=== PATIENT | male | born 1950 | race Caucasian/White ===

== ENCOUNTER 2016-12-12 19:27 | Inpatient (IN) | payer OTHER ==
[~2016-12-12] VITALS: Ht 172.7 cm; Wt 66.4 kg
[2016-12-12 19:27] VITALS: BP 146/80
[~2016-12-12 19:27] MED LIST: AMIODARONE HYD200 MG PO; ASPIR-TRIN325 MG PO; ASPIRIN CHEWABL81 MG PO; CIPRO500 MG PO; CLOPIDOGREL75 MG PO; COMBIVENT1 ARO IH; CRESTOR40 MG PO; DAYPRO600 M1 PO; DOXYCYCLINE100 M3 PO; FLAGYL500 MG PO; LISINOPRIL20 MG PO; LISINOPRIL5 MG PO; LOMOTIL 0.025 M1 TA1 PO; LOPRESSOR25 MG PO; MEDROL DOSEPAK4 MG PO; METOPROLOL SR50 MG PO; METOPROLOL SUCC50 M1 PO; NATURE'S BLEND F1 MG PO; OMEPRAZOLE20 MG PO; OXYCODONE HCL5 M1 PO; TRAMADOL HCL50 MG PO; VITAMIN B COMPL1 CAP PO; VITAMIN D1000 IU PO; ZITHROMAX Z PA250 MG PO; ZOFRAN ODT4 MG SL
[2016-12-12 20:09] LABS: BASO % 0.2 % (0.0-1.0); EOS # 0.1 10*3/uL (0.0-0.4); EOS % 0.9 % (1.0-4.0); HEMATOCRIT 38.4 % (42.0-52.0); LYMPH # 0.9 10*3/uL (1.3-4.4); LYMPH % 10.6 % (27.0-41.0); MEAN CELL VOLUME 91.2 fl (80.0-94.0); MEAN CORPUSCULAR HGB 30.9 pg (27.0-31.0); MEAN CORPUSCULAR HGB CONC 33.9 g/dl (33.0-37.0); MEAN PLATELET VOLUME 11.7 fl (9.6-12.3); MONO # 0.6 10*3/uL (0.1-1.0); MONO % 7.6 % (3.0-9.0); NEUT # 6.5 10*3/uL (2.3-7.9); NEUT % 80.5 % (47.0-73.0); PLATELET COUNT AUTOMATED 174 10*3/uL (130-400); RED BLOOD COUNT 4.21 10*6/uL (4.50-5.90); WHITE BLOOD COUNT 8.1 10*3/uL (4.8-10.8)
[2016-12-12 20:22] LABS: INTERNATIONAL NORM RATIO 1.1 (2.0-3.5); PROTHROMBIN TIME 12.2 SECONDS (9.0-12.4)
[2016-12-12 20:25] LABS: ALBUMIN 3.4 gm/dl (3.1-4.5); BILIRUBIN, TOTAL 0.4 mg/dl (0.2-1.0); MAGNESIUM 1.2 mg/dL (1.5-2.1); POTASSIUM 4.6 mmol/L (3.5-5.1); TOTAL PROTEIN 8.3 gm/dL (6.4-8.2)
[2016-12-12 20:33] LABS: TROPONIN I 0.059 ng/ml (<0.045)
[2016-12-12 22:30] VITALS: BP 138/74
[2016-12-12] MEDS ORDERED: B-1100 M1 PO (22:52)
[2016-12-13 00:02] VITALS: BP 140/89
[2016-12-13 00:45] LABS: TROPONIN I 0.437 ng/ml (<0.045)
[2016-12-13 06:09] LABS: HEMATOCRIT 37.1 % (42.0-52.0); HEMOGLOBIN 12.6 g/dl (14.0-18.0); MEAN CELL VOLUME 90.7 fl (80.0-94.0); MEAN CORPUSCULAR HGB 30.8 pg (27.0-31.0); MEAN PLATELET VOLUME 12.1 fl (9.6-12.3); PLATELET COUNT AUTOMATED 164 10*3/uL (130-400); RED BLOOD COUNT 4.09 10*6/uL (4.50-5.90); RED CELL DISTRI WIDTH 13.8 % (0-14.5); WHITE BLOOD COUNT 7.4 10*3/uL (4.8-10.8)
[2016-12-13 06:24] LABS: CKMB 11.4 ng/ml (0.5-3.6); TROPONIN I 0.305 ng/ml (<0.045)
[2016-12-13 06:38] LABS: BUN 29 mg/dl (7-24); CARBON DIOXIDE 23 mmol/L (21-32); CHLORIDE 105 mmol/L (98-107); CHOLESTEROL 145 mg/dL (<200); EST GLOM FILT AFRICAN AMERICAN > 60 ml/min; FREE T4 1.12 ng/dl (0.76-1.46); GLUCOSE 172 mg/dL (65-99); INTERNATIONAL NORM RATIO 1.1 (2.0-3.5); POTASSIUM 3.9 mmol/L (3.5-5.1); SODIUM 135 mmol/L (136-145); TRIGLYCERIDES 51 mg/dl (<150); VLDL CHOLESTEROL 10 mg/dL (6-40)
[2016-12-13 06:46] LABS: HDL CHOLESTEROL 50 mg/dl (40-60); LDL CHOLESTEROL 85 mg/dL (9-159)
[2016-12-13 07:32] LABS: LYMPHOCYTE # 0.2 10*3/uL (1.3-4.4); MONOCYTE # 0.1 10*3/uL (0.1-1.0); NEUTROPHILS 95 % (47-73); PLATELET SUFFICIENCY NORMAL (NORMAL); TOTAL CELLS COUNTED 100 #CELLS
[2016-12-13 07:44] LABS: FOLIC ACID > 24.00 ng/mL (>5.38)
[2016-12-13 08:00] VITALS: BP 130/64
[2016-12-13 09:29] VITALS: BP 170/79
[2016-12-13 10:05] VITALS: BP 149/116
[2016-12-13 10:09] LABS: POTASSIUM 3.7 mmol/L (3.5-5.1)
[2016-12-13 10:16] LABS: CKMB 10.9 ng/ml (0.5-3.6); MAGNESIUM 0.8 mg/dL (1.5-2.1); TROPONIN I 0.202 ng/ml (<0.045)
[2016-12-13] MEDS ORDERED: DUONEB 3 MG/3 ML3 M1 NEB (11:19)
[2016-12-13] MEDS ORDERED: HEPARIN-NS25000 UNIT IV (11:19)
[2016-12-13] MEDS ORDERED: TOPROL XL50 M1 PO (11:19)
[2016-12-13] MEDS ORDERED: MAGNESIUM IV (11:20)
== END 2016-12-13 11:46 | disposition short-term general hospital (02) | DRG 280 ==
LOC: ED 19:27 → EDHOLD 21:13 → 4E 21:13 → ICCU 12-13 10:11
PROVIDERS: Emergency Medicine Emergency Medical Services; Family Medicine; Internal Medicine
DX: I21.4 Non-ST elevation (NSTEMI) myocardial infarction (principal); J96.00 Acute respiratory failure, unspecified whether with hypoxia or hypercapnia; E44.0 Moderate protein-calorie malnutrition; J44.9 Chronic obstructive pulmonary disease, unspecified; I12.9 Hypertensive chronic kidney disease with stage 1 through stage 4 chronic kidney disease, or unspecified chronic kidney disease; N18.3 Chronic kidney disease, stage 3 (moderate); I25.10 Atherosclerotic heart disease of native coronary artery without angina pectoris; K21.9 Gastro-esophageal reflux disease without esophagitis; E78.00 Pure hypercholesterolemia, unspecified; G89.29 Other chronic pain; R74.0 Nonspecific elevation of levels of transaminase and lactic acid dehydrogenase [LDH]; D72.810 Lymphocytopenia; R73.9 Hyperglycemia, unspecified; E83.42 Hypomagnesemia; I73.9 Peripheral vascular disease, unspecified; M54.9 Dorsalgia, unspecified; Z86.73 Personal history of transient ischemic attack (TIA), and cerebral infarction without residual deficits; Z87.891 Personal history of nicotine dependence; I25.2 Old myocardial infarction; Z95.828 Presence of other vascular implants and grafts; Z95.1 Presence of aortocoronary bypass graft; Z95.818 Presence of other cardiac implants and grafts; Z90.49 Acquired absence of other specified parts of digestive tract; Z98.42 Cataract extraction status, left eye; Z82.49 Family history of ischemic heart disease and other diseases of the circulatory system; Z82.0 Family history of epilepsy and other diseases of the nervous system; Z79.82 Long term (current) use of aspirin; Z80.9 Family history of malignant neoplasm, unspecified; Z79.899 Other long term (current) drug therapy; Z68.22 Body mass index [BMI] 22.0-22.9, adult

== ENCOUNTER 2016-12-22 23:52 | Emergency (ER) | payer OTHER ==
[~2016-12-22] VITALS: Ht 172.7 cm; Wt 66.7 kg
--- NOTE | ~2016-12-22 | EKG ---
[place], [place] ELECTROCARDIOGRAM REPORT NAME: DOMINGA JUAREZ UNIT #: [id number] ROOM: DOCTOR: BONNY GUTIERREZ MD BIRTHDATE: [birth year] DOS: 12/23/2016 TIME: 0018 a.m. Normal sinus rhythm at rate 83, significant baseline artifact noted. Left atrial enlargement, nonspecific intraventricular conduction defect, old inferior wall myocardial infarction, probable left ventricular hypertrophy, abnormal electrocardiogram. BONNY GUTIERREZ MD CM:EKGRPT:ELECTROCARDIOGRAM REPORT 1302 1519 BONNY GUTIERREZ MD
--- NOTE | ~2016-12-22 | EKG ---
[place], [place] ELECTROCARDIOGRAM REPORT [facility] [id number] UNIT #: [id number] ROOM: DOCTOR: BRENDA RUEDA,BONNY BIRTHDATE: [birth year] DOS: 12/22/2016 TIME: 2350 p.m. Sinus tachycardia at rate of 102, nonspecific IVCD, old inferior wall myocardial infarction, possible left ventricular hypertrophy, lateral ST-segment depression consistent with ischemia, abnormal electrocardiogram. BONNY GUTIERREZ MD CM:EKGRPT:ELECTROCARDIOGRAM REPORT 1302 1521 BONNY GUTIERREZ MD
[~2016-12-22 23:52] MED LIST changes: +B-1100 M1 PO; +DUONEB 3 MG/3 ML3 M1 NEB; +HEPARIN-NS25000 UNIT IV; +MAGNESIUM IV; +TOPROL XL50 M1 PO
[2016-12-23 00:19] LABS: BASO % 0.2 % (0.0-1.0); EOS # 0.1 10*3/uL (0.0-0.4); EOS % 1.2 % (1.0-4.0); HEMATOCRIT 35.5 % (42.0-52.0); HEMOGLOBIN 12.1 g/dl (14.0-18.0); LYMPH # 0.9 10*3/uL (1.3-4.4); MEAN CELL VOLUME 91.5 fl (80.0-94.0); MEAN CORPUSCULAR HGB 31.2 pg (27.0-31.0); MEAN CORPUSCULAR HGB CONC 34.1 g/dl (33.0-37.0); MEAN PLATELET VOLUME 11.3 fl (9.6-12.3); MONO # 0.8 10*3/uL (0.1-1.0); MONO % 7.5 % (3.0-9.0); NEUT # 8.3 10*3/uL (2.3-7.9); NEUT % 81.7 % (47.0-73.0); PLATELET COUNT AUTOMATED 158 10*3/uL (130-400); RED BLOOD COUNT 3.88 10*6/uL (4.50-5.90); RED CELL DISTRI WIDTH 14.1 % (0-14.5); WHITE BLOOD COUNT 10.1 10*3/uL (4.8-10.8)
[2016-12-23 00:28] LABS: INTERNATIONAL NORM RATIO 1.1 (2.0-3.5); PROTHROMBIN TIME 11.6 SECONDS (9.0-12.4)
[2016-12-23 00:38] LABS: ALBUMIN 3.4 gm/dl (3.1-4.5); BILIRUBIN, TOTAL 0.3 mg/dl (0.2-1.0); POTASSIUM 4.2 mmol/L (3.5-5.1); TOTAL PROTEIN 7.7 gm/dL (6.4-8.2)
[2016-12-23 00:42] LABS: CKMB 9.4 ng/ml (0.5-3.6); TROPONIN I 0.071 ng/ml (<0.045)
== END 2016-12-23 01:04 | disposition short-term general hospital (02) ==
LOC: ED 23:52
PROVIDERS: Family Medicine
DX: I21.4 Non-ST elevation (NSTEMI) myocardial infarction (principal); R07.9 Chest pain, unspecified; I71.4 Abdominal aortic aneurysm, without rupture; I25.10 Atherosclerotic heart disease of native coronary artery without angina pectoris; I12.9 Hypertensive chronic kidney disease with stage 1 through stage 4 chronic kidney disease, or unspecified chronic kidney disease; N18.3 Chronic kidney disease, stage 3 (moderate); K21.9 Gastro-esophageal reflux disease without esophagitis; E78.00 Pure hypercholesterolemia, unspecified; Z95.1 Presence of aortocoronary bypass graft; Z86.73 Personal history of transient ischemic attack (TIA), and cerebral infarction without residual deficits; Z98.890 Other specified postprocedural states; Z98.42 Cataract extraction status, left eye; Z79.899 Other long term (current) drug therapy; Z79.82 Long term (current) use of aspirin

== ENCOUNTER → 2017-07-16 | Outpatient (CLI) | payer OTHER | END | disposition home or self-care (01) | LOC: CT 16:00 | DX: J84.9 Interstitial pulmonary disease, unspecified (principal); J44.9 Chronic obstructive pulmonary disease, unspecified; R91.8 Other nonspecific abnormal finding of lung field; Z95.1 Presence of aortocoronary bypass graft; Z95.5 Presence of coronary angioplasty implant and graft; Z87.891 Personal history of nicotine dependence ==

== ENCOUNTER 2017-08-29 14:59 | Inpatient (IN) | payer OTHER ==
[~2017-08-29] VITALS: Ht 172.7 cm; Wt 75.7 kg
[2017-08-29] VITALS (8 sets, daily range): BP systolic 93–180; BP diastolic 50–73
--- NOTE | ~2017-08-29 | PROC NOTE ---
[place], [place] PROCEDURE NOTE NAME: DOMINGA JUAREZ [facility] #: [id number] UNIT #: [id number] ROOM: [facility] DOCTOR: ROSHAN RYAN MD,IMELDA BIRTHDATE: [birth year] DOS: 09/11/2017 BRONCHOSCOPY NOTE PREOPERATIVE DIAGNOSES: The procedure is for assessment of the current hemoptysis, bilateral pulmonary infiltration, and also for interstitial lung disease. POSTOPERATIVE DIAGNOSES: The patient has evidence of clotted blood noted in bilateral endobronchial tree and previous hemoptysis, there was no active bleeding noted. After removing the blood clots from the bilateral endobronchial tree, the BAL specimen was obtained in the right lower lobe as well. COMPLICATIONS: None. PROCEDURE DESCRIPTION: Informed consent was obtained from the patient's son. Procedure was done in the ICU in the negative pressure room. After that, the bronchoscope advanced to the endotracheal tube and lower part of trachea. Trachea was noted with significant amount of clotted blood, which has been suctioned out to the sosa level. Similar amount of secretion was present in the bilateral endobronchial tree. There were no endobronchial obstructive lesions noted. After removal of the clotted blood from the endobronchial tree , the BAL specimen was obtained from the patient's right lower lobe endobronchial tree without any difficulty. Bronchial washings were sent for all the necessary cultures for this patient, cytology as well as the pneumocystis specimen. Because of the current hemorrhage, the patient was recommended about discontinuation of anticoagulation to prevent further bleeding. He would be also recommended transfer to tertiary care for further assessment of the patient. The patient may require open lung biopsy as well for further determination and accurately determine the cause of bleeding. I will defer further changes in steroids of the patient to be done by the receiving hospital. IMELDA ISLAS MD CM:PROCNOTE:PROCEDURE NOTE [id number] IMELDA RYAN MD
--- NOTE | ~2017-08-29 | PR ---
[place], [place] PROGRESS NOTE NAME: DOMINGA JUAREZ [facility] #: [id number] UNIT #: [id number] ROOM: [facility] DOCTOR: BOB MILLS MD BIRTHDATE: [birth year] DOS: 08/31/2017 REASON FOR VISIT: Elevated cardiac enzymes and chest pain. HISTORY OF PRESENT ILLNESS: The patient currently is comfortable and denies any chest pain. Apparently, he had significant chest pain this morning, which was treated with subinguinal nitro and then subsequently morphine, intravenous nitroglycerin and also started on Lovenox. His cardiac enzymes did go up since yesterday, and EKG also showed some lateral ST-T changes. At the time of my examination, he is comfortable, denies any chest pain or shortness of breath. No nausea, vomiting, no headache. No dizziness. No palpitations. No PND or orthopnea. REVIEW OF SYSTEMS: Review of the 8 systems negative except as mentioned above. RHYTHM STRIPS: The patient in sinus rhythm. PHYSICAL EXAMINATION: VITAL SIGNS: Blood pressure 113/63, pulse 70, respiratory rate 16. GENERAL: Alert, comfortable, in no acute distress. NECK: Neck supple. No distended neck veins, no carotid bruit. HEENT: Pupils are round and equal. Tongue was moist and pharynx was clear. CHEST: Symmetrical, nontender. The patient had ICD in the left upper chest area. LUNGS: A few scattered rhonchi, slightly diminished at bases. HEART: Regular rhythm. No S3. Grade 1/6 systolic murmur. ABDOMEN: Benign, nontender. Bowel sounds normal. EXTREMITIES: Showed trace edema. Distal pulses palpable. SKIN: Warm and dry. No cyanosis, no clubbing. NEUROLOGIC: The patient is alert, oriented. No focal neurologic deficit. RECTAL: Deferred. GENITOURINARY: Deferred. REVIEW OF DIAGNOSTIC TESTS: EKG showed sinus rhythm with lateral ST-T changes. His cardiac enzymes were reviewed. His creatinine is 1.6. IMPRESSION: 1. Non-ST elevation myocardial infarction. 2. History of coronary artery disease, status post bypass a long time ago, cardiac cath in February 2017; reports not available, apparently showed diffuse coronary artery disease and medical therapy was recommended. 3. Left ventricular dysfunction with ejection fraction of 35% to 40% by recent echo. 4. Chronic kidney disease, stage 3 to 4. 5. History of ischemic cardiomyopathy, status post implantable cardioverter-defibrillator. 6. Hypertension. 7. Pneumonia. RECOMMENDATIONS: His events from today reviewed. [place], [place] PROGRESS NOTE NAME: DOMINGA JUAREZ [facility] #: [id number] UNIT #: [id number] ROOM: [facility] DOCTOR: LINA RUEDA,BOB BIRTHDATE: [birth year] Long discussion with the patient regarding his symptoms, NSTEMI and his known coronary artery disease and his cardiac cath last year showing severe diffuse disease, recommending medical therapy only. Continue the aspirin, Plavix, Ranexa, beta blockers, statins and Lovenox. Conservative medical therapy versus cardiac catheterization, and risks and benefits of both approaches were discussed at length and both agreeable to continuing medical therapy today and then we will rediscuss about other conservative medical therapy versus cardiac catheterization tomorrow. This patient is aware of the risks cardiac catheterization, especially renal complications due to his chronic kidney disease. Up titrate his medications as his blood pressure can tolerate. He has no family at the bedside at the time of my examination. The above treatment was discussed with the medical secretary team. BOB MILLS MD CM:PNTRANS [id number] BOB MILLS MD 09/01/17 1317 interface
--- NOTE | ~2017-08-29 | PR ---
[place], [place] PROGRESS NOTE NAME: DOMINGA JUAREZ UNIT #: [id number] ROOM: [facility] DOCTOR: ROSHAN RYAN MD,IMELDA BIRTHDATE: [birth year] DOS: 09/11/2017 ADDENDUM TO PULMONARY AND CRITICAL CARE MANAGEMENT NOTE: The critical care time mentioned in the note for the patient does exclude any billable procedures for today. IMELDA ISLAS MD CM:PNTRANS [id number] IMELDA RYAN MD 09/12/17 0633 interface
--- NOTE | ~2017-08-29 | PR ---
[place], [place] PROGRESS NOTE NAME: DOMINGA JUAREZ [facility] #: [id number] UNIT #: [id number] ROOM: [facility] DOCTOR: LINA RUEDA,BOB BIRTHDATE: [birth year] DOS: 09/01/2017 REASON FOR VISIT: NSTEMI and coronary artery disease. SUBJECTIVE: The patient is feeling better. Denies any chest pain. He slept comfortably last night. No arrhythmias overnight. REVIEW OF SYSTEMS: Review of the 8 systems negative except as mentioned above. RHYTHM STRIPS: Patient in sinus rhythm. PHYSICAL EXAMINATION: VITAL SIGNS: Blood pressure 134/65, pulse 74, respirations 19, weight 75.7 kg. GENERAL: Alert, comfortable, in no acute distress. HEAD AND NECK: Neck supple, no distended neck veins, no carotid bruit. Pupils are round, equal. No jaundice. Tongue was moist and pharynx was clear. CHEST: Symmetrical, nontender. LUNGS: Few scattered rhonchi. HEART: Regular rhythm, no S3. Grade 1/6 systolic murmur. ABDOMEN: Benign, nontender. Bowel sounds normal. EXTREMITIES: Trace edema. Distal pulses palpable. SKIN: Warm and dry. No cyanosis, no clubbing. NEUROLOGIC: Patient is alert, oriented. No focal neurologic deficit. Labs and medications reviewed. Hemoglobin 9.9. Creatinine 1.76. IMPRESSION: 1. Non-ST elevation myocardial infarction. 2. Coronary artery disease, status post bypass surgery, cardiac catheterization, 2017. Medical therapy recommended. 3. Severe left ventricular dysfunction with ejection fraction 20%. 4. Status post ICD. 5. Chronic kidney disease. 6. Anemia. 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 RECOMMENDATIONS: 1. Currently chest pain free. Blood pressure and heart rate are stable. 2. Discontinue IV Tridil and put him on isosorbide dinitrate 40 mg 3 times a day. 3. Decrease Lovenox to once daily due to his chronic kidney disease. 4. Since he is clinically asymptomatic, due to the chronic kidney disease and significant anemia, conservative medical therapy appears to be the appropriate therapy at this time and the patient is agreeable with just medical therapy at this time. 5. There is no family at bedside at the time of my visit. 6. Dr. Santiago to follow him from tomorrow. [place], [place] PROGRESS NOTE NAME: DOMINGA JUAREZ UNIT #: [id number] ROOM: [facility] DOCTOR: LINA RUEDA,BOB BIRTHDATE: [birth year] BOB MILLS MD CM:PNARMANI 1544 [id number] BOB MILLS MD 09/02/17 0058 interface
--- NOTE | ~2017-08-29 | CON ---
[place], [place] REPORT OF CONSULTATION NAME: [id number] UNIT #: [id number] ROOM: [facility] DOCTOR: ROSHAN RYAN MD,IMELDA BIRTHDATE: [birth year] DOS: 09/11/2017 PULMONARY CRITICAL CARE, EVALUATION AND MANAGEMENT HISTORY OF PRESENT ILLNESS: The patient remains intubated on the mechanical ventilator. The patient has been noted with some bloody secretion, which has been suctioned out from the endotracheal tube intermittently appeared to be clotted blood. He was planned for bronchoscopy done today. Vasopressor therapy was given for this patient as needed for the hypertension management with intravenous Levophed. He was continuing broad spectrum intravenous antibiotics. The patient was planned for bronchoscopy be done today. The patient has been noted with recent myocardial infarction and was getting Xarelto as well. PHYSICAL EXAMINATION: VITAL SIGNS: For the patient which has been recorded shows blood pressure 89/53 to 101/51. Heart rate ranged between 105-112 with atrial fibrillation. The temperature remains normal. The intake of 1496 mL, output 1425 mL. Pulse oxygen saturation 40% oxygen, 98% saturation on assist control, volume control mechanical ventilation. HEENT: The patient currently intubated. Orogastric tube is in place. The neck was supple. Head was atraumatic. CARDIOVASCULAR: S1, S2 audible. LUNGS: Crackles of the lungs were noted bilaterally. ABDOMEN: Soft, nontender. EXTREMITIES: The patient was noted with chronic changes with dryness of the skin. MUSCULOSKELETAL: No obvious deformities. CENTRAL NERVOUS SYSTEMS: Currently, the patient is sedated. LABORATORY DATA: Labs on the patient, CBC that was done this morning shows hemoglobin 7.1, hematocrit 21.4, WBC count normal, platelet count was normal. The BMP of the patient, BUN 68, creatinine 2.28. Glucose 192. AST of 69, ALT of 155. The culture of the endotracheal aspirate noted on light growth of yeast. Arterial blood gas 40% oxygen this morning, pH of 7.40, pCO2 of 36, pO2 123. Chest x-ray of the patient shows bilateral diffuse pulmonary infiltration noted, endotracheal tube in place. The appearance was noted to be worse as compared with the previous chest x-ray. IMPRESSION: 1. The patient who has been currently noted with the chronic interstitial infiltration in the right lower lobe with superimposed bilateral diffuse infiltration with hemoptysis and acute kidney injury for the patient was noted as well. Possible pulmonary renal syndrome would be considered in the differential diagnosis. 2. Acute bacterial pneumonia suspected treated with broad spectrum intravenous antibiotics as well. 3. Possibility of allergic drug reaction causing current progressive infiltration would be considered a drug-induced injury as well. 4. The patient with severe protein calorie malnutrition. 5. Overall severe debility as well. Change in mental status secondary to [place], [place] REPORT OF CONSULTATION NAME: DOMINGA JUAREZ UNIT #: [id number] ROOM: [facility] DOCTOR: ROSHAN RYAN MD,IMELDA BIRTHDATE: [birth year] above, hypotension, multifactorial. PLAN OF MANAGEMENT: Bronchoscopy will be done. Continuation of ____ bronchodilators. The patient already receiving Solu-Medrol 40 mg b.i.d. This would also need to be possibly discontinue for the patient because of the current hemoptysis, which has been noted. Other supportive therapy, plan of management and other care. Proceed with bronchoscopy today. The consent has been already obtained for the family members. Usual care. All other additional treatment changes need to be made based on progression of the illness. Total time in pulmonary critical care, evaluation and management for the patient was 39 minutes. IMELDA ISLAS MD CM:CONSTR:REPORT OF CONSULTATION 1431 09/12/17 0455 interface
--- NOTE | ~2017-08-29 | PR ---
[place], [place] PROGRESS NOTE NAME: DOMINGA JUAREZ [facility] #: [id number] UNIT #: [id number] ROOM: [facility] DOCTOR: ROSHAN RYAN MD,IMELDA BIRTHDATE: [birth year] DOS: 09/10/2017 SUBJECTIVE: The patient remains in Intensive Care Unit. The patient remains intubated. The oxygen requirement for the patient has been gradually decreased to 40% oxygen supplementation. He has been continuing broad spectrum intravenous antibiotics. Small amount of secretion with suctioning of endotracheal tube. The patient has not been noted with any hemodynamic instability at this time. He has not been noted with any changes in the mental status. Sedation has been decreased. The patient was noted with improvement in mental status. The patient has not been noted with any symptoms of diarrhea. There were no symptoms of hemoptysis. Tachycardia of the patient noted intermittently with atrial fibrillation, rapid ventricular response. Mild hypotension noted that has been treated with the use of the vasopressor for this patient. He has not been started on any feeding at the present time. The patient was closely monitored with the patient's urinary output as well. Good urinary output of the patient was noted. OBJECTIVE: VITAL SIGNS: Temperature noted 96.9 degree Fahrenheit, normal temperature, respiratory rate 12-14, heart rate of 110 with atrial fibrillation to 104. The blood pressure ranges between 81/60-107/59. Intake for the patient was 1460 mL, output 1825 mL. Pulse oxygen saturation on 40% oxygen is 97% saturation recorded. HEENT: Showed no acute change. The patient remained orally intubated. Orogastric tube is in place. Head was atraumatic. Eye nonicterus. NECK: Supple. CARDIOVASCULAR: S1, S2 is audible. LUNGS: Crackles of the lungs were noted bilaterally without changes. There was no wheezing. ABDOMEN: Soft, nontender. EXTREMITIES: Without any acute edema. Chronic skin changes. MUSCULOSKELETAL: No acute deformities. CENTRAL NERVOUS SYSTEM: Currently, the patient is sedated, however, no focal neurologic deficit reported previously. LABORATORY DATA: CMP today, glucose 214, BUN 70, creatinine 2.38. AST 106, ALT 181. Bilirubin 1.3, total albumin 2.9. CBC of the patient this morning, WBC count of 11.2, hemoglobin 7.9, hematocrit 24.0, platelet count of 193,000. The vancomycin trough level noted 17.8. Arterial blood gas 40% oxygen assist control mode, pH of 7.39, pCO2 39.6, pO2 of 78.4. The endotracheal aspirate of the patient preliminarily noted no bacterial growth, final culture results were pending. IMPRESSION: 1. The patient who has been currently noted with severe progressive hypoxic respiratory failure with chronic interstitial lung disease, superimposed acute interstitial process, possibly congestive heart failure, pneumonia and other remains a possibility. 2. Recent non-ST segment elevation myocardial infarction on this admission as well. [place], [place] PROGRESS NOTE NAME: DOMINGA JUAREZ UNIT #: [id number] ROOM: [facility] DOCTOR: ROSHAN RYAN MD,[facility] BIRTHDATE: [birth year] 3. Acute kidney injury of the patient, multifactorial. 4. Protein-calorie malnutrition was also suspected. PLAN OF TREATMENT: Start the patient on Nepro 20 goal of 60 mL an hour. Obtain the prealbumin level of the patient in the labs tomorrow morning. Also order a chest x-ray of the patient to be done while on the mechanical ventilator. The bronchoscopy was planned to be done for this patient at the bedside with the BAL specimen obtained for the patient, especially from the right lower lobe. In the meantime, continue antibiotic therapy of the patient as ongoing. Usual care. Additional treatment changes of the patient needs to be done based on progression of the illness. Supportive care, other treatment plan and management as well. Nutrition support for the patient has been ordered. Ventilator bundle management of the patient ordered as well. Additional treatment changes in the management of the patient to be made based on the progression of the illness. Usual care. Other additional treatment changes. Supportive care and other therapies. The consent for the bronchoscopy has been obtained from the patient's daughter for the procedure to be done tomorrow morning at the bedside in Intensive Care Unit. Monitor all the culture results and then de-escalation of the antibiotic of the patient will be ordered afterwards. Total time in pulmonary and critical care evaluation and management of the patient was 36 minutes. ADDENDUM The critical care time mentioned in the note for the patient does exclude any billable procedures for today. IMELDA ISLAS MD CM:PNTRANS 1429 0016 IMELDA RYAN MD 09/12/17 0633 interface
--- NOTE | ~2017-08-29 | CON ---
[place], [place] REPORT OF CONSULTATION NAME: DOMINGA JUAREZ [facility] #: [id number] UNIT #: [id number] ROOM: [facility] DOCTOR: ROSHAN RYAN MD,IMELDA BIRTHDATE: [birth year] DOS: 09/09/2017 CONSULTATION REQUESTED: Dr. Arevalo. REASON FOR CONSULTATION: Progressive acute respiratory failure currently on the BiPAP. HISTORY OF PRESENT ILLNESS: This is a 66-year-old white male who was admitted to the hospital under care of hospitalist services on 08/29/2017. The patient presented to the Emergency Room as he has been noted with increased symptoms of chest pain inability to lay flat. The pain was described to be nonradiating. The symptoms were associated shortness of breath as well. The patient has been treated at [facility] with some antibiotic because of the possibility of infection. He was also reported symptoms of productive cough as well. The patient was reported with the right lower lobe infiltration and pneumonia on admission. He was noted with a non-ST segment elevation myocardial infarction as well. Conservative treatment was advised. The patient was treated in the hospital for above-mentioned conditions. He has been noted progressive deterioration of the respiratory status in the last 24 hours with gradual increase in oxygen requirement. He has been admitted in the Intensive Care Unit to previously. transferred to the telemetry floor and readmitted to the hospital yesterday because of worsening of the respiratory status. The patient has been receiving the BiPAP treatment in the last 24 hours. He was still noted with symptoms of shortness of breath in distress as well. Chest x-ray repeated which showed marked worsening of the pulmonary infiltration in the lungs. The patient was ordered to be intubated and started on mechanical ventilation after I assessed the patient. All the history contained document was noted. Review of the medical record by other physician as well as the notes for the other nursing staff. REVIEW OF SYSTEMS: Cannot be completed. Current critical illness. 1. The patient's inability to communicate verbally. 2. History of chronic hypoxic respiratory failure, use of oxygen. 3. History of chronic obstructive pulmonary disease. 4. Recent non-ST segment elevation myocardial infarction on this admission and coronary artery disease history. 5. Past history of cerebrovascular accident. 6. Gastroesophageal reflux. 7. Hypercholesterolemia. 8. History of anemia. 9. Peripheral vascular disease. PAST SURGICAL HISTORY: 1. Noted with peripheral vascular disease intervention, left lower extremity femoral popliteal bypass grafting. 2. Past cardiac catheterization and coronary artery stents insertion, appendectomy. 3. Coronary artery bypass grafting. 4. Left eye cataract extraction. 5. AICD insertion. [place], [place] REPORT OF CONSULTATION NAME: DOMINGA JUAREZ UNIT #: [id number] ROOM: [facility] DOCTOR: ROSHAN RYAN MD,IMELDA BIRTHDATE: [birth year] SOCIAL HISTORY: The patient reported as history of past tobacco use. The patient was noted smoking up to 2 packs of cigarettes per day that was done for 54 years. He has stopped smoking cigarettes in 04/2016. He was also noted past use of alcohol due to 3 beers a day 4 days a week that was discontinued in April 2016 as well. The initial illicit drug use reported. He does not have any close family members at this time living with him. FAMILY HISTORY: The patient reported as father at 64 years old from acute myocardial infarction. Mother at 80 years old, complication related to Alzheimer disease. One of the brother at age 6161 years old from unknown cancer. MEDICATIONS: Noted as use of DuoNeb, aspirin, metoprolol tartrate, Symbicort, Ranexa, Lasix, Tessalon Perles, Crestor, omeprazole, lisinopril and Plavix. DRUG ALLERGIES: NOTED WITH NO KNOWN DRUG ALLERGIES. PHYSICAL EXAMINATION: GENERAL: A 66-year-old male who has been currently noted in distress. The patient intubated successfully and started on mechanical ventilation later on. Height of 5 feet 8 inches, weight of 167 pounds, BMI 25.3. VITAL SIGNS: The patient shows a normal temperature. Respiratory rate range between 12-24, heart rate of 110-104. The blood pressure 122/83-87/69. Pulse oxygen saturation noted on the BiPAP as saturation 95% post-intubation 99%-100% saturation. HEENT: The patient is currently intubated after initial assessment. Endotracheal tube was inserted. Eye nonicterus. Head was atraumatic. CARDIOVASCULAR SYSTEM: S1, S2 audible. LUNGS: Diffuse reduction in breath sounds with bilateral crackles of the lungs as well. ABDOMEN: Noted flat, soft, nontender. EXTREMITIES: The patient noted chronic changes. MUSCULOSKELETAL: Does not show an acute deformity. SKIN: Shows some area of bruising or finding with the dryness of the skin. LABORATORY DATA: BMP , BUN 51, creatinine 1.81, glucose 142. CBC of 09/03 hemoglobin 9.3, hematocrit 27. WBC count normal, platelet count was normal. Culture of the sputum information noted moderate growth of yeast. Troponin on admission noted as 0.21 on 08/29 with a maximum troponin peaked on the of this month as 11.1 and then gradual reduction noted. After , the troponin was not repeated. The blood culture was noted without any bacterial growth from admission. CMP that was done 09/07, BUN 68, creatinine 2.14, glucose 170. The CBC on 09/07, WBC count 13.8, hemoglobin 8.9, hematocrit 27.2, platelet count was normal. The labs which was done this morning shows CBC this morning, WBC count 19.3, hemoglobin 8.1, hematocrit 25.5, platelet count 220,000, 85% segmented neutrophils. BMP today, BUN 80, creatinine 2.76. Glucose 114. Arterial blood gas on 40% oxygen Venturi mask, pH of 7.44, PCO2 31, PO2 of 65. The arterial blood gas was now repeated after that. The review of the radiology data. CT scan of the chest was done on 07/16/2017 review shows evidence of ____ [place], [place] REPORT OF CONSULTATION NAME: DOMINGA JUAREZ UNIT #: [id number] ROOM: [facility] DOCTOR: ROSHAN RYAN MD,IMELDA BIRTHDATE: [birth year] finding with infiltration, consolidation prefer based as well. Centrilobular emphysema changes noted. Remaining lungs. There was no visible significant lymphadenopathy; however, the lack of the contrast. The patient certainly does limit the further assessment. CT scan of 12/23/2016 shows similar finding noted in the right lower lobe with interstitial lung disease. The chest x-ray that was done on admission of 08/29/2017 was reviewed shows patchy infiltration. The patient noted consistent with the previous CT scan finding may be more pronounced. The patient was also noted with AICD in place as well. Remaining lung was noted clear. The chest x-ray shows worsening of the pulmonary infiltration with the cross pulmonary edema was suggested at that time. The chest x-ray that was done on shows persistent abnormality that was previously noted with sparing of the right upper lung. The chest x-ray that was done this morning at 9:45 a.m., which I personally reviewed shows marked worsening of the previous noted infiltration, which are noted to be very much more diffuse a partial sparing of the right upper lung was noted. The remaining finding of previous noted, unchanged. Echocardiogram was also done on this admission 08/30/2017 described by the radiologist with a decreased left ventricle ejection fraction 35%-40%. Left atrium was described to be severely dilated. IMPRESSION: 1. The patient who has been admitted to the hospital noted progressive worsening of respiratory status with worsening of pulmonary infiltration, which appeared to be interstitial with the possible differential of interstitial edema and congestive heart failure as in #1 ____ however, additional etiology to be considered such a developing additional pulmonary infection with hospital-acquired infection consideration of the leukocytosis was also noted. 2. The patient with progressive acute kidney injury related to multiple factors including possibility of infection and a cardiomyopathy with congestive heart failure. 3. Chronic obstructive pulmonary disease and acute exacerbation and acute chronic interstitial process was also noted right lower lobe with differential of cellular Non-specific interstitial pneumonia as well as cryptogenic organizing pneumonia and other differential such a chronic infection remain in consideration. PLAN AND RECOMMENDATION: The patient has been ordered to be intubated, started on mechanical ventilation. Diuresis the patient and consideration for possibility of hemodialysis necessary as well. Endotracheal aspirate. Gram stain and culture. Consider fiber optic bronchoscopy of the patient with BAL specimen especially directed to the right lower lobe. Continuation of the corticosteroid empirically added as well for noninfectious etiology. Bronchodilator to be continued. Continue medical management and recommendation given by the other consultants. Total time pulmonary and critical evaluation and management was 50 minutes. [place], [place] REPORT OF CONSULTATION NAME: DOMINGA JUAREZ UNIT #: [id number] ROOM: [facility] DOCTOR: IMELDA OAKLEY MD BIRTHDATE: [birth year] IMELDA ISLAS MD CM:CONSTR:REPORT OF CONSULTATION 1624 09/10/17 0359 interface
--- NOTE | ~2017-08-29 | PR ---
[place], [place] PROGRESS NOTE NAME: DOMINGA JUAREZ [facility] #: [id number] UNIT #: [id number] ROOM: [facility] DOCTOR: BONNY GUTIERREZ MD BIRTHDATE: [birth year] DOS: 09/04/2017 SUBJECTIVE: The patient was seen today at his bedside. He states that for 3 days in a row now, he is feeling better. He has had less chest discomfort. He denies palpitations. Unfortunately, he has developed some hemoptysis. This probably relates to his full-dose Lovenox and pneumonia, but his breathing is improving. His biggest complaint today was constipation. PHYSICAL EXAMINATION: VITAL SIGNS: Today, his pulse is 95 and irregularly irregular. Blood pressure is 102/58. He weighs 75.8 kg and has a body mass index of 25.4. He is afebrile. NECK: Supple. He has no jugular distention. Carotids are full. LUNGS: Respirations are unlabored at rest, but he does have bilateral crackles two-thirds of the way up. He has no presacral edema. HEART: Has an irregularly irregular rhythm without murmurs or gallops. The PMI is not displaced. ABDOMEN: Soft and normally active. EXTREMITIES: Showed no edema. LABORATORY DATA: Hemoglobin today is 9.7 with hematocrit of 29.5. There are 9700 white cells present, platelet count is 190,000. Sodium is 139, potassium 4.6, BUN 65 and creatinine 1.98. Chest x-ray yesterday showed a right lower lobe pneumonia without significant change. He does seem to be stable from a cardiac standpoint and his heart rate is coming under better control. For now, we will continue to load him with amiodarone. I would like to continue to treat him with anticoagulants for stroke and DVT prophylaxis. As noted previously, he does have severe multivessel coronary artery disease without any options for revascularization. Therefore, we will continue to manage him medically as best we can. I thank the hospitalist physicians for asking our advice regarding his care. [place], [place] PROGRESS NOTE NAME: DOMINGA JUAREZ [facility] #: [id number] UNIT #: [id number] ROOM: [facility] DOCTOR: BONNY GUTIERREZ MD BIRTHDATE: [birth year] BONNY GUTIERREZ MD CM:MARIO [id number] BONNY GUTIERREZ MD 09/04/17 2211 interface
--- NOTE | ~2017-08-29 | PR ---
[place], [place] PROGRESS NOTE NAME[id number] #: [id number] ROOM: 425 DOCTOR: BONNY GUTIERREZ MD BIRTHDATE: [birth year] DOS: 09/07/2017 SUBJECTIVE: The patient was seen at his bedside today, 09/07/2017, for followup of his atherosclerotic heart disease, severe coronary artery disease, dyspnea and chest pain. He seems very agitated today. He told me on several occasions that he just has to "get out of here." He does not seem to understand the gravity of his problems. He was noted to have a drop in his oximetry and a chest x-ray this morning shows that his pneumonia has increased in its extent and now is a bilateral phenomenon. He denies any chest pain or palpitations. PHYSICAL EXAMINATION: VITAL SIGNS: His pulse is 100 and irregularly irregular, blood pressure is 133/73. He is afebrile. NECK: He does have neck vein distention with hepatojugular reflux. Carotids are full. LUNGS: Respirations are slightly labored at rest and he is audibly wheezing as we speak with coarse upper respiratory sounds. He has no presacral edema. HEART: Has an irregularly irregular rhythm with distant tones. ABDOMEN: Benign. EXTREMITIES: Showed no edema. He does appear to have a progression of his pneumonia. LABORATORY DATA: His white count is up to 13,800 and his chest x-ray is worse. IMPRESSION: 1. Bilateral pneumonia. 2. Chest pain. 3. Obstructive lung disease. 4. Acute on chronic respiratory failure. 5. Non-ST elevation myocardial infarction. 6. Diffuse coronary artery disease without acceptable targets for revascularization. PLAN: We will continue his amiodarone at a lower dose. He will continue Xarelto for stroke prophylaxis. Infectious Disease Services have been consulted for his progressive pneumonia. He may require further anxiolytic medications. We thank the hospitalist physicians for asking our advice regarding his care. [place], [place] PROGRESS NOTE NAME: [facility]Z [facility] [id number] UNIT #: [id number] ROOM: 425 DOCTOR: BONNY GUTIERREZ MD BIRTHDATE: [birth year] BONNY GUTIERREZ MD CM:PNTRANS [phone] [id number] BONNY GUTIERREZ MD 09/07/176 interface
--- NOTE | ~2017-08-29 | PR ---
[place], [place] PROGRESS NOTE NAME: DOMINGA JUAREZ [facility] #: [id number] UNIT #: [id number] ROOM: [facility] DOCTOR: BONNY GUTIERREZ MD BIRTHDATE: [birth year] DOS: 09/02/2017 CARDIOLOGY PROGRESS NOTE. SUBJECTIVE: The patient was seen at his bedside in the intensive care unit today, 09/02/2017 for followup of his atherosclerotic heart disease. He is a 66-year-old man with multiple medical problems including severe coronary artery disease. He did undergo catheterization recently. His left main and circumflex were occluded. His right coronary artery was patent, but had severe distal disease. A left internal mammary graft to the LAD was patent, but the LAD was diffusely diseased. It was felt that he was best treated medically. In the hospital now, he does have recurrent chest pain and unstable angina with troponin elevations consistent with an acute non-ST elevation CO. His troponin peaked on 08/31 at a level of 11.0. The patient has other medical problems as well including COPD, on home oxygen; history of abdominal aortic aneurysm; chronic kidney disease; hypertension and hyperlipidemia. His most recent echocardiogram on 08/30/2017 showed ejection fraction of 35-40% with stage II diastolic dysfunction. PHYSICAL EXAMINATION: VITAL SIGNS: Today, his pulse is 76 and regular, blood pressure is 152/66. He is afebrile. NECK: Supple. He has no jugular distention. He does have mild hepatojugular reflux. Carotids are full. LUNGS: Respirations are slightly labored at rest. He has decreased breath sounds at the bases, but no wheezes. HEART: Has an irregularly irregular rhythm. Heart tones are distant. There are no obvious murmurs or gallops. ABDOMEN: Soft and normally active. EXTREMITIES: Showed no edema. IMPRESSION: 1. Non-ST elevation myocardial infarction. 2. Coronary artery disease status post bypass surgery. Cardiac catheterization in 2017, resulted in an ongoing medical therapy. 3. Systolic and diastolic congestive heart failure with left ventricular systolic dysfunction. 4. ICD in place. 5. Chronic renal insufficiency. 6. 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 PLAN: I will be giving him IV nitroglycerin and IV morphine to try to stabilize his pain. We will also be giving him IV metoprolol to try to decrease his heart rate and blood pressure, then decrease his pain that way. I will increase his ranolazine and add a calcium channel heri to his regimen. Unfortunately, with his diffuse coronary artery disease and multiple other medical problems, his long-term prognosis appears to be poor. [place], [place] PROGRESS NOTE NAME: DOMINGA JUAREZ UNIT #: [id number] ROOM: [facility] DOCTOR: BRENDA RUEDA,BONNY BIRTHDATE: [birth year] I thank the hospitalist physicians for asking our advice regarding his care. BONNY GUTIERREZ MD CM:PNTRANS [id number] BONNY GUTIERREZ MD 09/02/17 1045 interface
--- NOTE | ~2017-08-29 | PR ---
[place], [place] PROGRESS NOTE [id number] #: [id number] ROOM: [facility] DOCTOR: BONNY GUTIERREZ MD BIRTHDATE: [birth year] DOS: 09/08/2017 CARDIOLOGY PROGRESS NOTE SUBJECTIVE: The patient was transferred to the Intensive Care Unit overnight because of hypoxemia, worsening pneumonia and loss of IV access. The patient remains argumentative and apparently confused. He denies chest pain now, but apparently did have chest pain earlier. PHYSICAL EXAMINATION: VITAL SIGNS: Today his pulse is 104 and irregularly irregular, blood pressure is 139/72. He is afebrile. NECK: Supple. He does have jugular distention with hepatojugular reflux. Carotids are full. LUNGS: Respirations are unlabored at rest, but he does have crackles about 1/[address] up bilaterally. HEART: Has an irregularly irregular rhythm with distant tones. ABDOMEN: Benign. EXTREMITIES: Showed trace edema bilaterally. LABORATORY DATA: White count today is 12,800 with hemoglobin of 8.2 and a platelet count of 200,000. BUN is 70 and gradually rising creatinine 2.2, potassium 4.6. pO2 on a recent blood gas was 25. Chest x-ray done on 09/07/2017 showed an enlarged heart with extensive interstitial disease throughout the left lung and right lower lobe. There were no pleural effusions and no pneumothorax. IMPRESSION: 1. Bilateral pneumonia with worsening respiratory failure. 2. Chest pain with diffuse multivessel coronary artery disease and no good options for revascularization. 3. Obstructive lung disease. 4. Acute on chronic respiratory failure. 5. Non-ST elevation myocardial infarction earlier this hospitalization. PLAN: We will continue Xarelto for stroke prophylaxis and keep him on low dose amiodarone. Hopefully, he will convert to sinus rhythm. Infectious Disease is seeing him for his progressive pneumonia. He looks to me like he may require intubation if his breathing does not improve. I am concerned about his confusion as well. This is making him difficult to manage and may be a manifestation of how sick he really is. We will continue to follow him with his other physicians and I thank the hospitalist physicians for asking our advice regarding his care. [place], [place] PROGRESS NOTE NAME: DOMINGA JUAREZ UNIT #: [id number] ROOM: [facility] DOCTOR: BONNY GUTIERREZ MD BIRTHDATE: [birth year] BONNY GUTIERREZ MD CM:PNTRANS [id number] BONNY GUTIERREZ MD 09/09/17 1553 interface
--- NOTE | ~2017-08-29 | EKG ---
[place], [place] ELECTROCARDIOGRAM REPORT NAME: DOMINGA JUAREZ UNIT #: [id number] ROOM: [facility] DOCTOR: LINA RUEDA,BOB BIRTHDATE: [birth year] DOS: 08/31/2017 TIME: 9:40 a.m. IMPRESSION: 1. Sinus rhythm, sinus tachycardia. 2. Anterolateral ST-T changes suggestive of ischemia. 3. Old inferior infarction. 4. Nonspecific intraventricular conduction delay. BOB MILLS MD CM:EKGRPT:ELECTROCARDIOGRAM REPORT 1449 [id number] BOB MILLS MD
--- NOTE | ~2017-08-29 | EKG ---
[place], [place] ELECTROCARDIOGRAM REPORT NAME: DOMINGA JUAREZ UNIT #: [id number] ROOM: [facility] DOCTOR: LINA RUEDA,BOB BIRTHDATE: [birth year] DOS: 08/30/2017 TIME: 9:09 a.m. IMPRESSION: 1. Sinus rhythm, sinus tachycardia. 2. Supraventricular ectopy. 3. Anterolateral ST-T changes, suggestive of ischemia. 4. Old inferior infarction. BOB MILLS MD CM:EKGRPT:ELECTROCARDIOGRAM REPORT 1427 [id number] BOB MILLS MD
--- NOTE | ~2017-08-29 | EKG ---
[place], [place] ELECTROCARDIOGRAM REPORT [id number] UN[facility] #: [id number] ROOM: [facility] DOCTOR: ROSHAN RYAN MD,IMELDA BIRTHDATE: [birth year] DOS: 09/10/2017 ELECTROCARDIOGRAM The testing was done for the patient on 09/10/2017 at 5:59 p.m. The electrocardiogram for this patient was noted with findings of atrial fibrillation, heart rate of 100 beats per minute, evidence of chronic right bundle branch block and old inferior myocardial infarction. IMELDA ISLAS MD CM:EKGRPT:ELECTROCARDIOGRAM REPORT 1422 1449 IMELDA RYAN MD
[2017-08-29 15:44] LABS: BASO % 0.3 % (0.0-1.0); EOS # 0.1 10*3/uL (0.0-0.4); HEMATOCRIT 34.9 % (42.0-52.0); HEMOGLOBIN 11.5 g/dl (14.0-18.0); LYMPH # 0.6 10*3/uL (1.3-4.4); LYMPH % 9.2 % (27.0-41.0); MEAN CELL VOLUME 96.1 fl (80.0-94.0); MEAN CORPUSCULAR HGB 31.7 pg (27.0-31.0); MEAN PLATELET VOLUME 11.8 fl (9.6-12.3); MONO # 0.8 10*3/uL (0.1-1.0); MONO % 13.5 % (3.0-9.0); NEUT # 4.7 10*3/uL (2.3-7.9); NEUT % 75.5 % (47.0-73.0); PLATELET COUNT AUTOMATED 189 10*3/uL (130-400); RED BLOOD COUNT 3.63 10*6/uL (4.50-5.90); RED CELL DISTRI WIDTH 12.6 % (0-14.5); WHITE BLOOD COUNT 6.2 10*3/uL (4.8-10.8)
[2017-08-29 16:00] LABS: INTERNATIONAL NORM RATIO 1.1 (2.0-3.5)
[2017-08-29 16:01] LABS: ALBUMIN 3.2 gm/dl (3.1-4.5); CREATININE 1.6 mg/dL (0.70-1.30); POTASSIUM 4.1 mmol/L (3.5-5.1); TOTAL PROTEIN 7.6 gm/dL (6.4-8.2)
[2017-08-29 16:03] LABS: TROPONIN I 0.021 ng/ml (<0.045)
[2017-08-30] VITALS: BP 131/49
[2017-08-30 06:50] LABS: HEMATOCRIT 33.3 % (42.0-52.0); HEMOGLOBIN 11.2 g/dl (14.0-18.0); MEAN CELL VOLUME 94.1 fl (80.0-94.0); MEAN CORPUSCULAR HGB 31.6 pg (27.0-31.0); MEAN CORPUSCULAR HGB CONC 33.6 g/dl (33.0-37.0); MEAN PLATELET VOLUME 11.8 fl (9.6-12.3); PLATELET COUNT AUTOMATED 195 10*3/uL (130-400); RED BLOOD COUNT 3.54 10*6/uL (4.50-5.90); RED CELL DISTRI WIDTH 12.6 % (0-14.5); WHITE BLOOD COUNT 6.6 10*3/uL (4.8-10.8)
[2017-08-30 07:08] LABS: CREATININE 1.58 mg/dL (0.70-1.30); FREE T4 1.06 ng/dl (0.76-1.46); PHOSPHOROUS 3.2 mg/dL (2.5-4.9); POTASSIUM 4.4 mmol/L (3.5-5.1)
[2017-08-30 07:14] LABS: THYROID STIM HORMONE (HS) 0.661 uIU/ml (0.358-4.75)
[2017-08-30 07:24] LABS: PLATELET SUFFICIENCY NORMAL (NORMAL); TOTAL CELLS COUNTED 100 #CELLS
[2017-08-30 07:26] LABS: INTERNATIONAL NORM RATIO 1.1 (2.0-3.5)
[2017-08-30 07:45] LABS: VITAMIN D, 25-HYDROXY 18.4 ng/mL (30-100)
[2017-08-30 08:00] VITALS: BP 160/70
[2017-08-30] MEDS ORDERED: LOPRESSOR25 MG PO (09:04)
[2017-08-30] MEDS ORDERED: SYMB160 INH (09:07)
[2017-08-30] MEDS ORDERED: FUROSEMIDE40 MG PO (09:08)
[2017-08-30] MEDS ORDERED: RANEXA500 M1 PO (09:08)
[2017-08-30] MEDS ORDERED: NITROSTAT0.4 MG SL (09:10)
[2017-08-30] MEDS ORDERED: TESSALON PERLE100 MG PO (09:11)
[2017-08-30 12:00] VITALS: BP 189/98
[2017-08-30 16:00] VITALS: BP 127/57
[2017-08-30 20:00] VITALS: BP 140/56
[2017-08-31] VITALS (31 sets, daily range): BP systolic 99–183; BP diastolic 50–96
[2017-08-31 05:57] LABS: CREATININE 1.61 mg/dL (0.70-1.30); POTASSIUM 5.1 mmol/L (3.5-5.1)
[2017-08-31 06:00] LABS: HEMOGLOBIN 10.4 g/dl (14.0-18.0); MEAN CELL VOLUME 96.1 fl (80.0-94.0); MEAN CORPUSCULAR HGB 31.2 pg (27.0-31.0); MEAN CORPUSCULAR HGB CONC 32.5 g/dl (33.0-37.0); PLATELET COUNT AUTOMATED 189 10*3/uL (130-400); RED BLOOD COUNT 3.33 10*6/uL (4.50-5.90); RED CELL DISTRI WIDTH 12.9 % (0-14.5); WHITE BLOOD COUNT 12.2 10*3/uL (4.8-10.8)
[2017-08-31 06:57] LABS: PLATELET SUFFICIENCY NORMAL (NORMAL); TOTAL CELLS COUNTED 100 #CELLS
[2017-08-31 10:00] LABS: ALBUMIN 3.3 gm/dl (3.1-4.5); CREATININE 1.69 mg/dL (0.70-1.30); POTASSIUM 4.7 mmol/L (3.5-5.1)
[2017-09-01] VITALS (11 sets, daily range): BP systolic 104–170; BP diastolic 49–81
[2017-09-01 06:14] LABS: HEMATOCRIT 29.9 % (42.0-52.0); HEMOGLOBIN 9.9 g/dl (14.0-18.0); MEAN CELL VOLUME 96.5 fl (80.0-94.0); MEAN CORPUSCULAR HGB 31.9 pg (27.0-31.0); MEAN CORPUSCULAR HGB CONC 33.1 g/dl (33.0-37.0); MEAN PLATELET VOLUME 12.6 fl (9.6-12.3); PLATELET COUNT AUTOMATED 181 10*3/uL (130-400); RED CELL DISTRI WIDTH 13.2 % (0-14.5); WHITE BLOOD COUNT 9.6 10*3/uL (4.8-10.8)
[2017-09-01 06:21] LABS: ALBUMIN 2.9 gm/dl (3.1-4.5); CREATININE 1.76 mg/dL (0.70-1.30); POTASSIUM 4.7 mmol/L (3.5-5.1); TOTAL PROTEIN 6.8 gm/dL (6.4-8.2)
[2017-09-01 07:08] LABS: PLATELET SUFFICIENCY NORMAL (NORMAL); TOTAL CELLS COUNTED 100 #CELLS
[2017-09-02] VITALS (54 sets, daily range): BP systolic 84–154; BP diastolic 32–91
[2017-09-02 06:04] LABS: HEMATOCRIT 31.3 % (42.0-52.0); HEMOGLOBIN 10.1 g/dl (14.0-18.0); MEAN CELL VOLUME 95.7 fl (80.0-94.0); MEAN CORPUSCULAR HGB 30.9 pg (27.0-31.0); MEAN CORPUSCULAR HGB CONC 32.3 g/dl (33.0-37.0); MEAN PLATELET VOLUME 12.5 fl (9.6-12.3); PLATELET COUNT AUTOMATED 201 10*3/uL (130-400); RED BLOOD COUNT 3.27 10*6/uL (4.50-5.90); RED CELL DISTRI WIDTH 13.2 % (0-14.5); WHITE BLOOD COUNT 10.7 10*3/uL (4.8-10.8)
[2017-09-02 06:06] LABS: CREATININE 1.53 mg/dL (0.70-1.30); POTASSIUM 4.1 mmol/L (3.5-5.1); TOTAL PROTEIN 6.8 gm/dL (6.4-8.2)
[2017-09-02 07:15] LABS: PLATELET SUFFICIENCY NORMAL (NORMAL); TOTAL CELLS COUNTED 100 #CELLS
[2017-09-03] VITALS (16 sets, daily range): BP systolic 95–139; BP diastolic 54–81
[2017-09-03 05:58] LABS: CREATININE 1.81 mg/dL (0.70-1.30); POTASSIUM 4.2 mmol/L (3.5-5.1)
[2017-09-03 06:03] LABS: BASO % 0.1 % (0.0-1.0); HEMATOCRIT 27.7 % (42.0-52.0); HEMOGLOBIN 9.3 g/dl (14.0-18.0); LYMPH # 0.4 10*3/uL (1.3-4.4); LYMPH % 4.6 % (27.0-41.0); MEAN CELL VOLUME 95.8 fl (80.0-94.0); MEAN CORPUSCULAR HGB 32.2 pg (27.0-31.0); MEAN CORPUSCULAR HGB CONC 33.6 g/dl (33.0-37.0); MEAN PLATELET VOLUME 12.3 fl (9.6-12.3); MONO # 0.4 10*3/uL (0.1-1.0); MONO % 5.1 % (3.0-9.0); NEUT # 7.2 10*3/uL (2.3-7.9); NEUT % 87.9 % (47.0-73.0); PLATELET COUNT AUTOMATED 192 10*3/uL (130-400); RED BLOOD COUNT 2.89 10*6/uL (4.50-5.90); RED CELL DISTRI WIDTH 13.1 % (0-14.5); WHITE BLOOD COUNT 8.2 10*3/uL (4.8-10.8)
[2017-09-04] VITALS: BP 123/71
[2017-09-04 04:07] VITALS: BP 114/82
[2017-09-04 05:57] LABS: CREATININE 1.98 mg/dL (0.70-1.30); POTASSIUM 4.6 mmol/L (3.5-5.1)
[2017-09-04 06:01] LABS: HEMATOCRIT 29.5 % (42.0-52.0); HEMOGLOBIN 9.7 g/dl (14.0-18.0); LYMPH # 0.5 10*3/uL (1.3-4.4); LYMPH % 4.7 % (27.0-41.0); MEAN CELL VOLUME 94.2 fl (80.0-94.0); MEAN CORPUSCULAR HGB CONC 32.9 g/dl (33.0-37.0); MEAN PLATELET VOLUME 12.4 fl (9.6-12.3); MONO # 0.5 10*3/uL (0.1-1.0); MONO % 5.4 % (3.0-9.0); NEUT # 8.6 10*3/uL (2.3-7.9); NUCLEATED RED BLOOD CELL 0.2 % (0.0-0.0); PLATELET COUNT AUTOMATED 190 10*3/uL (130-400); RED BLOOD COUNT 3.13 10*6/uL (4.50-5.90); RED CELL DISTRI WIDTH 13.1 % (0-14.5); WHITE BLOOD COUNT 9.7 10*3/uL (4.8-10.8)
[2017-09-04 08:00] VITALS: BP 136/82
[2017-09-04 12:00] VITALS: BP 102/58
[2017-09-04 16:00] VITALS: BP 146/89
[2017-09-04 17:06] LABS: LEGIONELLA URINARY ANTIGEN Negative (Negative)
[2017-09-04 20:06] VITALS: BP 112/71
[2017-09-05] VITALS: BP 116/75
[2017-09-05 04:00] VITALS: BP 120/82
[2017-09-05 06:12] LABS: HEMOGLOBIN 9.5 g/dl (14.0-18.0); LYMPH # 0.4 10*3/uL (1.3-4.4); LYMPH % 4.1 % (27.0-41.0); MEAN CELL VOLUME 93.3 fl (80.0-94.0); MEAN CORPUSCULAR HGB 31.7 pg (27.0-31.0); MEAN CORPUSCULAR HGB CONC 33.9 g/dl (33.0-37.0); MEAN PLATELET VOLUME 12.4 fl (9.6-12.3); MONO # 0.6 10*3/uL (0.1-1.0); NEUT # 9.2 10*3/uL (2.3-7.9); NEUT % 89.6 % (47.0-73.0); NUCLEATED RED BLOOD CELL 0.1 10*3/uL (0.0-0.0); NUCLEATED RED BLOOD CELL 0.6 % (0.0-0.0); PLATELET COUNT AUTOMATED 186 10*3/uL (130-400); RED CELL DISTRI WIDTH 12.9 % (0-14.5); WHITE BLOOD COUNT 10.2 10*3/uL (4.8-10.8)
[2017-09-05 06:30] LABS: CREATININE 2.11 mg/dL (0.70-1.30); POTASSIUM 4.2 mmol/L (3.5-5.1)
[2017-09-05 08:00] VITALS: BP 120/82
[2017-09-05 12:00] VITALS: BP 126/89
[2017-09-05 16:00] VITALS: BP 142/95
[2017-09-05 20:00] VITALS: BP 117/81
[2017-09-06] VITALS: BP 131/83
[2017-09-06 04:00] VITALS: BP 116/73
[2017-09-06 05:15] LABS: BASO % 0.1 % (0.0-1.0); HEMATOCRIT 26.5 % (42.0-52.0); HEMOGLOBIN 8.9 g/dl (14.0-18.0); LYMPH # 0.3 10*3/uL (1.3-4.4); LYMPH % 3.6 % (27.0-41.0); MEAN CORPUSCULAR HGB 31.6 pg (27.0-31.0); MEAN CORPUSCULAR HGB CONC 33.6 g/dl (33.0-37.0); MEAN PLATELET VOLUME 11.7 fl (9.6-12.3); MONO # 0.6 10*3/uL (0.1-1.0); MONO % 6.2 % (3.0-9.0); NEUT # 8.1 10*3/uL (2.3-7.9); NEUT % 89.4 % (47.0-73.0); NUCLEATED RED BLOOD CELL 0.1 10*3/uL (0.0-0.0); PLATELET COUNT AUTOMATED 166 10*3/uL (130-400); RED BLOOD COUNT 2.82 10*6/uL (4.50-5.90); RED CELL DISTRI WIDTH 13.1 % (0-14.5)
[2017-09-06 05:30] LABS: CREATININE 1.97 mg/dL (0.70-1.30); POTASSIUM 4.2 mmol/L (3.5-5.1)
[2017-09-06 08:00] VITALS: BP 124/88
[2017-09-06 12:00] VITALS: BP 119/71
[2017-09-06 16:00] VITALS: BP 127/84
[2017-09-06 20:00] VITALS: BP 111/92
[2017-09-07] VITALS: BP 105/76
[2017-09-07 06:07] LABS: HEMATOCRIT 27.2 % (42.0-52.0); HEMOGLOBIN 8.9 g/dl (14.0-18.0); MEAN CELL VOLUME 94.4 fl (80.0-94.0); MEAN CORPUSCULAR HGB 30.9 pg (27.0-31.0); MEAN CORPUSCULAR HGB CONC 32.7 g/dl (33.0-37.0); MEAN PLATELET VOLUME 12.8 fl (9.6-12.3); NUCLEATED RED BLOOD CELL 0.1 10*3/uL (0.0-0.0); NUCLEATED RED BLOOD CELL 0.8 % (0.0-0.0); PLATELET COUNT AUTOMATED 205 10*3/uL (130-400); RED BLOOD COUNT 2.88 10*6/uL (4.50-5.90); WHITE BLOOD COUNT 13.8 10*3/uL (4.8-10.8)
[2017-09-07 06:34] LABS: CREATININE 2.14 mg/dL (0.70-1.30); POTASSIUM 4.4 mmol/L (3.5-5.1); TOTAL PROTEIN 6.5 gm/dL (6.4-8.2)
[2017-09-07 06:35] LABS: BURR CELLS FEW; PLATELET SUFFICIENCY NORMAL (NORMAL); POLYCHROMASIA SLIGHT; TOTAL CELLS COUNTED 100 #CELLS
[2017-09-07 08:00] VITALS: BP 133/73
[2017-09-07 16:00] VITALS: BP 153/90
[2017-09-07 21:14] VITALS: BP 133/71
[2017-09-08] VITALS (7 sets, daily range): BP systolic 125–144; BP diastolic 66–84
[2017-09-08 03:32] LABS: ABG BASE EXCESS -2.7 mmol/L (-2.0-2.0); ABG HCO3 22.4 mmol/l (22-26); ABG O2 SATURATION 36.4 % (95-97); ARTERIAL BLOOD GAS PH 7.342 (7.35-7.45)
[2017-09-08 03:57] LABS: ABG BASE EXCESS -2.5 mmol/L (-2.0-2.0); ABG O2 SATURATION 94.4 % (95-97); ARTERIAL BLOOD GAS PH 7.429 (7.35-7.45); ARTERIAL BLOOD GAS PO2 74.6 mmHg (80-90)
[2017-09-08 07:18] LABS: HEMATOCRIT 25.1 % (42.0-52.0); HEMOGLOBIN 8.2 g/dl (14.0-18.0); LYMPH # 0.4 10*3/uL (1.3-4.4); LYMPH % 2.9 % (27.0-41.0); MEAN CORPUSCULAR HGB 30.7 pg (27.0-31.0); MEAN CORPUSCULAR HGB CONC 32.7 g/dl (33.0-37.0); MONO # 0.8 10*3/uL (0.1-1.0); MONO % 6.4 % (3.0-9.0); NEUT # 11.5 10*3/uL (2.3-7.9); NEUT % 89.6 % (47.0-73.0); NUCLEATED RED BLOOD CELL 0.1 10*3/uL (0.0-0.0); NUCLEATED RED BLOOD CELL 0.9 % (0.0-0.0); PLATELET COUNT AUTOMATED 200 10*3/uL (130-400); RED BLOOD COUNT 2.67 10*6/uL (4.50-5.90); WHITE BLOOD COUNT 12.8 10*3/uL (4.8-10.8)
[2017-09-08 07:48] LABS: POTASSIUM 4.6 mmol/L (3.5-5.1)
[2017-09-08 07:54] LABS: ALBUMIN 3.1 gm/dl (3.1-4.5); CREATININE 2.2 mg/dL (0.70-1.30); TOTAL PROTEIN 6.3 gm/dL (6.4-8.2)
[2017-09-08 17:16] LABS: ABG BASE EXCESS -2.2 mmol/L (-2.0-2.0); ABG HCO3 21.3 mmol/l (22-26); ABG O2 SATURATION 92.8 % (95-97); ARTERIAL BLOOD GAS PCO2 31.5 mmHg (35-45); ARTERIAL BLOOD GAS PH 7.44 (7.35-7.45); ARTERIAL BLOOD GAS PO2 65.7 mmHg (80-90)
[2017-09-09] VITALS (41 sets, daily range): BP systolic 72–147; BP diastolic 43–98
[2017-09-09 05:51] LABS: CREATININE 2.76 mg/dL (0.70-1.30)
[2017-09-09 06:49] LABS: HEMATOCRIT 25.5 % (42.0-52.0); HEMOGLOBIN 8.1 g/dl (14.0-18.0); MEAN CORPUSCULAR HGB 30.8 pg (27.0-31.0); MEAN CORPUSCULAR HGB CONC 31.8 g/dl (33.0-37.0); MEAN PLATELET VOLUME 12.8 fl (9.6-12.3); NUCLEATED RED BLOOD CELL 0.2 10*3/uL (0.0-0.0); PLATELET COUNT AUTOMATED 220 10*3/uL (130-400); RED BLOOD COUNT 2.63 10*6/uL (4.50-5.90); RED CELL DISTRI WIDTH 13.3 % (0-14.5); WHITE BLOOD COUNT 19.3 10*3/uL (4.8-10.8)
[2017-09-09 07:39] LABS: TOTAL CELLS COUNTED 100 #CELLS
[2017-09-09 07:40] LABS: BURR CELLS FEW; PLATELET SUFFICIENCY NORMAL (NORMAL); POLYCHROMASIA SLIGHT
[2017-09-09 12:28] LABS: ABG BASE EXCESS -3.8 mmol/L (-2.0-2.0); ABG HCO3 20.6 mmol/l (22-26); ABG O2 SATURATION 95.2 % (95-97); ARTERIAL BLOOD GAS PCO2 35.8 mmHg (35-45); ARTERIAL BLOOD GAS PH 7.374 (7.35-7.45); ARTERIAL BLOOD GAS PO2 81.8 mmHg (80-90)
[2017-09-10] VITALS (88 sets, daily range): BP systolic 81–131; BP diastolic 42–99
[2017-09-10 02:49] LABS: HEMOGLOBIN 7.9 g/dl (14.0-18.0); MEAN CELL VOLUME 95.6 fl (80.0-94.0); MEAN CORPUSCULAR HGB 31.5 pg (27.0-31.0); MEAN CORPUSCULAR HGB CONC 32.9 g/dl (33.0-37.0); MEAN PLATELET VOLUME 11.9 fl (9.6-12.3); NUCLEATED RED BLOOD CELL 0.2 10*3/uL (0.0-0.0); NUCLEATED RED BLOOD CELL 1.8 % (0.0-0.0); PLATELET COUNT AUTOMATED 193 10*3/uL (130-400); RED BLOOD COUNT 2.51 10*6/uL (4.50-5.90); RED CELL DISTRI WIDTH 13.3 % (0-14.5); WHITE BLOOD COUNT 11.2 10*3/uL (4.8-10.8)
[2017-09-10 03:05] LABS: ALBUMIN 2.9 gm/dl (3.1-4.5); CREATININE 2.38 mg/dL (0.70-1.30); POTASSIUM 4.8 mmol/L (3.5-5.1)
[2017-09-10 03:19] LABS: TOTAL CELLS COUNTED 100 #CELLS
[2017-09-10 03:20] LABS: OVALOCYTES FEW; PLATELET SUFFICIENCY NORMAL (NORMAL); POLYCHROMASIA SLIGHT
[2017-09-10 07:12] LABS: ABG BASE EXCESS -3.1 mmol/L (-2.0-2.0); ABG O2 SATURATION 95.1 % (95-97); ARTERIAL BLOOD GAS PCO2 34.6 mmHg (35-45); ARTERIAL BLOOD GAS PH 7.397 (7.35-7.45); ARTERIAL BLOOD GAS PO2 78.4 mmHg (80-90)
[2017-09-10 17:38] LABS: ACT PARTIAL THROMBO TIME 22.3 SECONDS (20.8-31.5); INTERNATIONAL NORM RATIO 1.2 (2.0-3.5)
[2017-09-11] VITALS (9 sets, daily range): BP systolic 89–107; BP diastolic 48–65
[2017-09-11 04:29] LABS: HEMATOCRIT 21.4 % (42.0-52.0); HEMOGLOBIN 7.1 g/dl (14.0-18.0); MEAN CELL VOLUME 95.5 fl (80.0-94.0); MEAN CORPUSCULAR HGB 31.7 pg (27.0-31.0); MEAN CORPUSCULAR HGB CONC 33.2 g/dl (33.0-37.0); NUCLEATED RED BLOOD CELL 0.1 10*3/uL (0.0-0.0); NUCLEATED RED BLOOD CELL 0.7 % (0.0-0.0); PLATELET COUNT AUTOMATED 166 10*3/uL (130-400); RED BLOOD COUNT 2.24 10*6/uL (4.50-5.90); RED CELL DISTRI WIDTH 13.4 % (0-14.5); WHITE BLOOD COUNT 10.7 10*3/uL (4.8-10.8)
[2017-09-11 04:53] LABS: ALBUMIN 2.5 gm/dl (3.1-4.5); POTASSIUM 4.4 mmol/L (3.5-5.1)
[2017-09-11 04:56] LABS: CREATININE 2.28 mg/dL (0.70-1.30); TOTAL PROTEIN 5.3 gm/dL (6.4-8.2)
[2017-09-11 05:08] LABS: PLATELET SUFFICIENCY NORMAL (NORMAL); POLYCHROMASIA SLIGHT; TOTAL CELLS COUNTED 100 #CELLS
[2017-09-11 07:48] LABS: ABG BASE EXCESS -1.5 mmol/L (-2.0-2.0); ABG HCO3 22.7 mmol/l (22-26); ABG O2 SATURATION 98.9 % (95-97); ARTERIAL BLOOD GAS PCO2 36.7 mmHg (35-45); ARTERIAL BLOOD GAS PH 7.404 (7.35-7.45)
[2017-09-11] MEDS ORDERED: ZOSYN 3.373.375 GM/5 IV (11:27)
[2017-09-11] MEDS ORDERED: PACERONE200 MG PO (11:27)
[2017-09-11] MEDS ORDERED: SOLU-MEDRO40 MG/1 ML IV (11:27)
[2017-09-11] MEDS ORDERED: ATORVASTATIN CA80 M1 PO (11:27)
[2017-09-11] MEDS ORDERED: XARE15TA PO (11:27)
[2017-09-11] MEDS ORDERED: Vitamin D PO (11:27)
[2017-09-11 11:56] LABS: BF LYMPHOCYTES 29 %; BF MACROPHAGES 34 %; BF NEUTROPHILS 32 %
[2017-09-12 15:06] LABS: ACID FAST SMEAR Negative (.); ACID FAST SPEC PROCESSING Concentration (.)
== END 2017-09-11 17:22 | disposition short-term general hospital (02) | DRG 853 ==
LOC: ED 14:59 → EDHOLD 16:32 → 5E 16:32 → ICCU 08-30 16:05 → 4E 09-06 13:10 → ICCU 09-08 08:02
PROVIDERS: Family Medicine; Hospitalist; Internal Medicine; Internal Medicine Cardiovascular Disease; Internal Medicine Critical Care Medicine; Nurse Practitioner Family; Student in an Organized Health Care Education/Training Program
PROC: 4B02XTZ Measurement of Cardiac Defibrillator, External Approach (ICD-10-PCS; principal; 2017-08-30)
PROC: 02HV33Z Insertion of Infusion Device into Superior Vena Cava, Percutaneous Approach (ICD-10-PCS; 2017-09-09)
PROC: 0BH17EZ Insertion of Endotracheal Airway into Trachea, Via Natural or Artificial Opening (ICD-10-PCS; 2017-09-09)
PROC: 5A1945Z Respiratory Ventilation, 24-96 Consecutive Hours (ICD-10-PCS; 2017-09-09)
PROC: 0BC98ZZ Extirpation of Matter from Lingula Bronchus, Via Natural or Artificial Opening Endoscopic (ICD-10-PCS; 2017-09-11)
PROC: 5A09357 Assistance with Respiratory Ventilation, Less than 24 Consecutive Hours, Continuous Positive Airway Pressure (ICD-10-PCS; 2017-09-11)
PROC: 0BC68ZZ Extirpation of Matter from Right Lower Lobe Bronchus, Via Natural or Artificial Opening Endoscopic (ICD-10-PCS; 2017-09-11)
PROC: 0BC48ZZ Extirpation of Matter from Right Upper Lobe Bronchus, Via Natural or Artificial Opening Endoscopic (ICD-10-PCS; 2017-09-11)
PROC: 0BC78ZZ Extirpation of Matter from Left Main Bronchus, Via Natural or Artificial Opening Endoscopic (ICD-10-PCS; 2017-09-11)
PROC: 0BCB8ZZ Extirpation of Matter from Left Lower Lobe Bronchus, Via Natural or Artificial Opening Endoscopic (ICD-10-PCS; 2017-09-11)
PROC: 0BC18ZZ Extirpation of Matter from Trachea, Via Natural or Artificial Opening Endoscopic (ICD-10-PCS; 2017-09-11)
PROC: 0BC88ZZ Extirpation of Matter from Left Upper Lobe Bronchus, Via Natural or Artificial Opening Endoscopic (ICD-10-PCS; 2017-09-11)
PROC: 0BC58ZZ Extirpation of Matter from Right Middle Lobe Bronchus, Via Natural or Artificial Opening Endoscopic (ICD-10-PCS; 2017-09-11)
PROC: 0B9F8ZX Drainage of Right Lower Lung Lobe, Via Natural or Artificial Opening Endoscopic, Diagnostic (ICD-10-PCS; 2017-09-11)
PROC: 0BC38ZZ Extirpation of Matter from Right Main Bronchus, Via Natural or Artificial Opening Endoscopic (ICD-10-PCS; 2017-09-11)
DX: A41.9 Sepsis, unspecified organism (principal); I21.4 Non-ST elevation (NSTEMI) myocardial infarction; E43 Unspecified severe protein-calorie malnutrition; I26.99 Other pulmonary embolism without acute cor pulmonale; R65.21 Severe sepsis with septic shock; J96.21 Acute and chronic respiratory failure with hypoxia; N17.9 Acute kidney failure, unspecified; J15.9 Unspecified bacterial pneumonia; E87.2 Acidosis; I13.0 Hypertensive heart and chronic kidney disease with heart failure and stage 1 through stage 4 chronic kidney disease, or unspecified chronic kidney disease; J44.0 Chronic obstructive pulmonary disease with (acute) lower respiratory infection; J44.1 Chronic obstructive pulmonary disease with (acute) exacerbation; N18.4 Chronic kidney disease, stage 4 (severe); I50.40 Unspecified combined systolic (congestive) and diastolic (congestive) heart failure; R73.9 Hyperglycemia, unspecified; I71.4 Abdominal aortic aneurysm, without rupture; K21.9 Gastro-esophageal reflux disease without esophagitis; D53.9 Nutritional anemia, unspecified; I25.5 Ischemic cardiomyopathy; I25.119 Atherosclerotic heart disease of native coronary artery with unspecified angina pectoris; G89.29 Other chronic pain; M54.9 Dorsalgia, unspecified; F10.21 Alcohol dependence, in remission; E78.00 Pure hypercholesterolemia, unspecified; E55.9 Vitamin D deficiency, unspecified; Z79.82 Long term (current) use of aspirin; Z79.899 Other long term (current) drug therapy; Z86.73 Personal history of transient ischemic attack (TIA), and cerebral infarction without residual deficits; Z90.49 Acquired absence of other specified parts of digestive tract; Z95.1 Presence of aortocoronary bypass graft; Z99.81 Dependence on supplemental oxygen; Z95.818 Presence of other cardiac implants and grafts; Z98.42 Cataract extraction status, left eye; Z87.891 Personal history of nicotine dependence; Z82.49 Family history of ischemic heart disease and other diseases of the circulatory system; Z81.8 Family history of other mental and behavioral disorders; Z80.9 Family history of malignant neoplasm, unspecified; Z95.810 Presence of automatic (implantable) cardiac defibrillator; Z68.25 Body mass index [BMI] 25.0-25.9, adult